=== PATIENT | male | born 1940 ===

== ENCOUNTER 2024-12-19 17:44 | Inpatient (IN) | payer MEDICARE, OTHER ==
--- NOTE | 2024-12-19 18:58 | ERPHSYRPT ---
- History of Present Illness Patient Subjective Stated Complaint: c/o fall at home Triage Nursing Assessment: patient brought to ED by EMS with c/o fall in the bathroom. patient fell on Thursday trying to get into his car and hit his head. patient was at home today in the bathroom and fell, patient tried to get up and fell again and hit his head twice, patient has a head contusion on left lateral forehead, no abnormalities noted on the right side of head, patient states he hit the right side of his head once today and on Thursday. not a diabetic, states he just got dizzy and lost his balance. denies LOC, skin w/n/d, skin tear noted on left hand. patient is hard of hearing, afebrile, FSBS was 56 per EMS Physician History: Near syncope, patient had 2 episodes of near syncope, he got up to use the bathroom fell hit his head got back up fell hit his head again, he had is not on any blood thinners, he had no loss of conscious, he denied any neck pain, Denies any chest pain Prior Episodes: multiple episodes today Timing/Duration: today Precipitating Factors: none Context: activity Loss of Consciousness: no loss of consciousness Charcter of event(s): almost passed out Allergies/Adverse Reactions: No Known Drug Allergies Allergy (Verified 12/19/24 18:03) Home Medications: Albuterol Sulfate [Proair Respiclick] 1 puff IH DAILY 12/19/24 [History] Fluticasone Propion/Salmeterol [Fluticasone-Salmeterol 100-50] 1 inh IH DAILY PRN PRN 12/19/24 [History] Hx Tetanus, Diphtheria Vaccination/Date Given: Yes Hx Influenza Vaccination/Date Given: Yes Hx Pneumococcal Vaccination/Date Given: Yes Travel Risk - International Travel Have you traveled outside of the country in past 3 weeks: No - Emerging Infectious Disease Are you exhibiting symptoms associated with any current EIDs: No - Past Medical History Pertinent Past Medical History: Yes Other Medical History: black lung, ablation, neck fracture, bilat. shoulder surgery, left hand crushed from mine, back surgery x 2 - Past Surgical History Past Surgical History: Yes Cardiac: Cardiac Catheterization Respiratory: No Pertinent History Gastrointestinal: No Pertinent History Genitourinary: No Pertinent History Musculoskeletal: Orthopedic Surgery Male Surgical History: No Pertinent History Other Surgical History: bilat. shoulder surgery, left hand repair, - Social History Smoking Status: Former smoker Exposure to second hand smoke: No Drug Use: none - Social Determinants of Health Will the patient participate in the screening: Declined to provide Physical Exam - Nursing Vital Signs Nursing Vital Signs: Initial Vital Signs Temperature 97.6 F 12/19/24 17:47 Respiratory Rate 18 12/19/24 17:47 Blood Pressure 168/89 12/19/24 17:47 O2 Sat by Pulse Oximetry 97 12/19/24 17:47 Pain Scale Pain Intensity 9 - [place] Coma Scale Best Eye Response ([place]): (4) open spontaneously Best Verbal Response (Joe): (5) oriented Best Motor Response (Joe): (6) obeys commands Joe Total: 15 - Physical Exam General Appearance: no apparent distress, alert Eye Exam: bilateral eye: PERRL, EOMI Ears, Nose, Throat Exam: normal ENT inspection, pharynx normal, moist mucous membranes Neck Exam: normal inspection, non-tender, supple, full range of motion Respiratory: normal breath sounds, lungs clear, No chest tenderness, No respiratory distress Cardiovascular: regular rate/rhythm, capillary refill <2 sec, No murmur, No pulse deficit Gastrointestinal: soft, No tenderness, No distention, No mass Back Exam: normal inspection, normal range of motion, No CVA tenderness, No vertebral tenderness Extremity Exam: normal inspection, normal range of motion, pelvis stable, No tenderness Mental Status: alert, oriented x 3, cooperative construction tech Exam: normal speech, PERRL, No facial droop Coordination/Gait: normal finger to nose Motor/Sensory: no motor deficit, no sensory deficit, no pronator drift Skin Exam: normal color, warm, dry, other (Very hard of hearing), No rash SpO2 Interpretation: normal SpO2: 95 Comments: Forehead hematoma, scalp hematoma Ordered Tests: Active Orders 24 hr Category Date Time Status IV Insertion STAT Care 12/19/24 18:14 Active HEAD WITHOUT CONTRAST [CT] Stat Exams 12/19/24 18:42 Taken CBC W DIFF Stat Lab 12/19/24 19:10 Completed CMP Stat Lab 12/19/24 19:10 Received POCT GLUCOSE Stat Lab 12/19/24 18:09 Completed Lab/Rad Data: Laboratory Result Diagrams 12/19/24 19:10 Laboratory Results 12/19/24 12/19/24 Range/Units 19:10 18:09 WBC 11.3 H (4.23-9.07) x10^3/uL RBC 5.19 (4.63-6.08) x10^6/uL Hgb 15.7 (13.7-17.5) g/dL Hct 49.0 (40.1-51.0) % MCV 94.4 H (79.0-92.2) fL MCH 30.3 (25.7-32.2) pg MCHC 32.0 L (32.3-36.5) g/dL RDW 13.8 (11.6-14.4) % Plt Count 190 (163-337) x10^3/uL MPV 10.6 (9.4-12.4) fL Gran % 71.0 H (34.0-67.9) % Immature Gran % (Auto) 0.6 H (0.001-0.429) % Nucleat RBC Rel Count 0.0 (0.00-0.2) % Eos # (Auto) 0.15 (0.04-0.54) x10^3/uL Immature Gran # (Auto) 0.07 H (0.001-0.031) x10^3u/L Absolute Lymphs (auto) 2.02 (1.32-3.57) x10^3/uL Absolute Monos (auto) 0.98 H (0.30-0.82) x10^3/uL Absolute Nucleated RBC 0.00 (0.00-0.012) x10^3u/L Lymphocytes % 17.9 L (21.8-53.1) % Monocytes % 8.7 (5.3-12.2) % Eosinophils % 1.3 (0.8-7.0) % Basophils % 0.5 (0.2-1.2) % Absolute Granulocytes 7.99 H (1.78-5.38) x10^3/uL Basophils # 0.06 (0.01-0.08) x10^3/uL POC Glucometer 87 (74 to 106) mg/dL - Progress Progress Note: 12/19/24 19:[address] Marion - Departure Clinical Impression: Near syncope Head injury Qualifiers: Encounter type: initial encounter Qualified Code(s): S09.90XA - Unspecified injury of head, initial encounter Condition: Fair Critical Care Time: No Referrals: RAISSA BRISENO MD [Primary Care Provider, [facility]] - Follow up/PCP as directed
[2024-12-19 19:14] LABS: BASOPHIL % 0.5 % (0.2-1.2); Basophil (Absolute #) 0.06 x10^3/uL (0.01-0.08); Eosinophil (Absolute #) 0.15 x10^3/uL (0.04-0.54); Hematocrit 49.0 % (40.1-51.0); Hemoglobin 15.7 g/dL (13.7-17.5); IMMATURE GRAN # 0.07 x10^3u/L (0.001-0.031); IMMATURE GRAN % 0.6 % (0.001-0.429); Lymphocyte (Absolute #) 2.02 x10^3/uL (1.32-3.57); Mean Corpuscular Hemoglobin 30.3 pg (25.7-32.2); Mean Corpuscular Hgb Concent. 32.0 g/dL (32.3-36.5); Monocyte (Absolute #) 0.98 x10^3/uL (0.30-0.82); NUCLEATED RBC # 0.00 x10^3u/L (0.00-0.012); NUCLEATED RBC % 0.0 % (0.00-0.2); Platelet Count 190 x10^3/uL (163-337); Red Blood Count 5.19 x10^6/uL (4.63-6.08); White Blood Count 11.3 x10^3/uL (4.23-9.07)
[2024-12-19 19:40] LABS: Calcium 9.2 mg/dL (8.4-10.2); Carbon Dioxide 31.0 mmol/L (22-30); Creatinine 1 0.79 mg/dL (0.66-1.25); EST GLOMERULAR FILTRATION RATE 88.7 ML/MIN; Glucose 96.0 mg/dL (74-106); Potassium 4.2 mmol/L (3.5-5.1); SGOT/AST 30.0 U/L (17-59); SGPT/ALT 21.0 U/L (0-50); Total Protein 7.7 g/dL (6.3-8.2)
[2024-12-19] MEDS ORDERED: DUONEB 0.5-3 MG/3 ml Neb IH ONE (20:00)
[2024-12-19] MEDS: DUONEB 0.5-3 MG/3 ml Neb IH ONE (20:15)
[2024-12-19] MEDS ORDERED: AMOXIL 500 MG ONE (20:44)
[2024-12-19] MEDS: AMOXIL 500 MG PO ONE (20:45)
[2024-12-19 22:49] LABS: Glucose, Urine Negative (Negative); Protein,Urine Dip Negative (Negative); RBC 0-2 /HPF (0-5); WBC 0-2 /HPF (0-5)
[2024-12-19] MEDS ORDERED: ROCEPHIN 1 GM / 100 ML NaCl 1 GM/100 ML IVPB IV ONE (22:58)
[2024-12-19] MEDS: ROCEPHIN 1 GM / 100 ML NaCl 1 GM/100 ML IVPB IV ONE (22:59)
[2024-12-19] MEDS ORDERED: Zofran 4 MG/2 ML VIAL IV PRN (23:28)
[2024-12-20] MEDS: TYLENOL 325 MG PO PRN (00:45)
[2024-12-20] MEDS ORDERED: FLUTICASONE PROPION IH PRN (01:32)
[2024-12-20] MEDS ORDERED: SALMETEROL IH PRN (01:32)
[2024-12-20] MEDS ORDERED: [UNRECOGNIZED DRUG - OTHER] IH PRN (01:32)
--- NOTE | 2024-12-20 01:43 | PCM.HP ---
History of Present Illness - Chief Complaint Chief Complaint: Frequent falls Date: 12/19/24 History of Present Illness: is a 84 year old male with no significant reported medical history but a recent history of multiple falls who presented to the ED with near syncope. The patient reported that had 2 episodes of near syncope, when he got up to use the bathroom and fell, and hit his head; he then got back up, fell and hit his head again. He denied LOC and denied taking any blood thinners. He also denied any neck pain, chest pain, weakness or numbness. In the ED, the patient was found to have evidence of a sinusitis with leukocytosis. He received IV fluids and IV antibiotics. The patient has significant hearing impairment and does not have his hearing aids at the time of my assessment. The patient was noted to have a hematoma on his forehead. - Review of Systems Constitutional: Fatigue, Weakness, No Fever, No Chills, No Lethargy, No Malaise, No Night Sweats, No Weight Loss Eyes: No Symptoms Ears, Nose, & Throat: No Symptoms Respiratory: No Symptoms Cardiac: Syncope, No Chest Pain, No Edema, No Palpitations, No Orthopnea, No PND, No Other Abdominal/Gastrointestinal: No Symptoms Genitourinary Symptoms: No Symptoms Musculoskeletal: Fall, Injury, No Arthralgias, No Back Pain, No Neck Pain, No Deformity, No Joint Redness, No Joint Pain, No Joint Swelling, No Myalgias, No Other Skin: No Symptoms Neurological: Dizziness, Headache, No Focal Weakness, No Gait Changes, No Irritability, No Lethargy, No Paralysis, No Parasthesia, No Seizure, No Sensory Changes, No Speech Changes, No Tics, No Tremors, No Vertigo Psychological: No Symptoms Endocrine: No Symptoms Hematologic/Lymphatic: No Symptoms Immunological/Allergic: No Symptoms Medications & Allergies Home Medications: Home Medication List Albuterol Sulfate [Proair Respiclick] 1 puff IH DAILY 12/19/24 [History Confirmed 12/19/24] Amoxicillin 500 mg Cap [Amoxil 500 mg] 500 mg PO TID #30 cap 12/19/24 [Rx] Fluticasone Propion/Salmeterol [Fluticasone-Salmeterol 100-50] 1 inh IH DAILY PRN PRN 12/19/24 [History Confirmed 12/19/24] Allergies/Adverse Reactions: Allergies Allergy/AdvReac Type Severity Reaction Status Date / Time No Known Drug Allergies Allergy Verified 12/19/24 18:03 - Past Medical History Past Medical History: Yes Neurological History: No Pertinent History ENT History: Cataracts Cardiac History: No Pertinent History Respiratory History: No Pertinent History Endocrine Medical History: No Pertinent History Musculoskelatal History: Arthritis GI Medical History: No Pertinent History History: No Pertinent History Pyscho-Social History: No Pertinent History Male Reproductive Disorders: No Pertinent History Comment: black lung, ablation, neck fracture, bilat. shoulder surgery, left hand crushed from mine, back surgery x 2 - Past Surgical History Past Surgical History: Yes Cardiac History: Cardiac Catheterization Respiratory Surgery: No Pertinent History GI Surgical History: No Pertinent History Genitourinary Surgical Hx: No Pertinent History Musculskeletal Surgical Hx: Orthopedic Surgery Male Surgical History: No Pertinent History Other Surgical History: bilat. shoulder surgery, left hand repair, Significant Family History: no pertinent family hx - Social History Smoking Status: Former smoker Exposure to second hand smoke: No Alcohol: Occasionally Drug Use: none - Social Determinants of Health Will the patient participate in the screening: Declined to provide - Physical Exam Vital Signs: Vital Signs - 24 hr Temp Pulse Resp BP BP Pulse Ox 12/20/24 00:17 96 12/19/24 23:47 98.3 F 79 15 142/83 96 12/19/24 23:46 98.3 F 79 15 142/83 96 12/19/24 23:00 89 17 168/100 97 12/19/24 22:30 143/96 90 L 12/19/24 22:01 95 H 17 144/99 96 12/19/24 21:30 96 H 20 146/88 95 12/19/24 21:00 92 H 18 161/79 94 L 12/19/24 20:31 159/136 96 12/19/24 20:16 87 18 99 12/19/24 20:00 97 H 20 148/97 98 12/19/24 19:39 95 12/19/24 19:30 171/97 96 12/19/24 19:25 168/109 96 12/19/24 19:10 96 12/19/24 19:08 95 12/19/24 18:30 162/101 12/19/24 18:00 86 18 182/111 95 12/19/24 17:49 168/89 96 12/19/24 17:47 97.6 F 18 168/89 97 General Appearance: no apparent distress, alert Neurologic Exam: alert, oriented x 3, cooperative, 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, normal mood/affect, nml cerebellar function, sensation nml, No motor deficits, No sensory deficit, No disoriented, No confusion Eye Exam: PERRL/EOMI, eyes nml inspection, No scleral icterus, No pale conjunctivae, No photophobia Ears, Nose, Throat Exam: normal ENT inspection Neck Exam: normal inspection, non-tender, supple, full range of motion, No meningismus Respiratory Exam: normal breath sounds, lungs clear, airway intact, No chest tenderness, No respiratory distress Cardiovascular Exam: regular rate/rhythm, normal heart sounds, No murmur, No friction rub, No gallop Gastrointestinal/Abdomen Exam: soft, normal bowel sounds, No tenderness, No distention, No mass Back Exam: normal range of motion Extremity Exam: normal inspection, normal range of motion, No pedal edema, No swelling Skin Exam: normal color, other (forehead hematoma noted), No rash, No petechiae, No jaundice, No cyanosis Results - Labs Lab/Micro Results: Lab Results-Last 24 Hours 12/19/24 12/19/24 12/19/24 Range/Units 18:09 19:10 19:10 WBC 11.3 H (4.23-9.07) x10^3/uL RBC 5.19 (4.63-6.08) x10^6/uL Hgb 15.7 (13.7-17.5) g/dL Hct 49.0 (40.1-51.0) % MCV 94.4 H (79.0-92.2) fL MCH 30.3 (25.7-32.2) pg MCHC 32.0 L (32.3-36.5) g/dL RDW 13.8 (11.6-14.4) % Plt Count 190 (163-337) x10^3/uL MPV 10.6 (9.4-12.4) fL Gran % 71.0 H (34.0-67.9) % Immature Gran % (Auto) 0.6 H (0.001-0.429) % Nucleat RBC Rel Count 0.0 (0.00-0.2) % Eos # (Auto) 0.15 (0.04-0.54) x10^3/uL Immature Gran # (Auto) 0.07 H (0.001-0.031) x10^3u/L Absolute Lymphs (auto) 2.02 (1.32-3.57) x10^3/uL Absolute Monos (auto) 0.98 H (0.30-0.82) x10^3/uL Absolute Nucleated RBC 0.00 (0.00-0.012) x10^3u/L Lymphocytes % 17.9 L (21.8-53.1) % Monocytes % 8.7 (5.3-12.2) % Eosinophils % 1.3 (0.8-7.0) % Basophils % 0.5 (0.2-1.2) % Absolute Granulocytes 7.99 H (1.78-5.38) x10^3/uL Basophils # 0.06 (0.01-0.08) x10^3/uL Sodium 137 (135-145) mmol/L Potassium 4.2 (3.5-5.1) mmol/L Chloride 98 (98-107) mmol/L Carbon Dioxide 31 H (22-30) mmol/L Anion Gap 11.6 (5-15) MEQ/L BUN 14 (9-20) mg/dL Creatinine 0.79 (0.66-1.25) mg/dL Estimated GFR 88.7 ML/MIN Glucose 96 (74-106) mg/dL POC Glucometer 87 (74 to 106) mg/dL Calcium 9.2 (8.4-10.2) mg/dL Total Bilirubin 1.30 (0.2-1.3) mg/dL AST 30 (17-59) U/L ALT 21 (0-50) U/L Alkaline Phosphatase 83 (38-126) U/L Serum Total Protein 7.7 (6.3-8.2) g/dL Albumin 4.5 (3.5-5.0) g/dL Urine Color (Yellow) Urine Appearance (Clear) Urine pH (4.6-8.0) Ur Specific [place] (1.005-1.030) Urine Protein (Negative) Urine Glucose (UA) (Negative) mg/dL Urine Ketones (Negative) Urine Blood (Negative) Urine Nitrite (Negative) Urine Bilirubin (Negative) Urine Urobilinogen (0.2) mg/dL Ur Leukocyte Esterase (Negative) U Hyaline Cast (Auto) (0-2) /LPF Urine Microscopic RBC (0-5) /HPF Urine Microscopic WBC (0-5) /HPF Ur Epithelial Cells (None Seen) /HPF Urine Bacteria (None Seen) /HPF Urine Culture Reflexed (NO) 12/19/24 Range/Units 22:36 WBC (4.23-9.07) x10^3/uL RBC (4.63-6.08) x10^6/uL Hgb (13.7-17.5) g/dL Hct (40.1-51.0) % MCV (79.0-92.2) fL MCH (25.7-32.2) pg MCHC (32.3-36.5) g/dL RDW (11.6-14.4) % Plt Count (163-337) x10^3/uL MPV (9.4-12.4) fL Gran % (34.0-67.9) % Immature Gran % (Auto) (0.001-0.429) % Nucleat RBC Rel Count (0.00-0.2) % Eos # (Auto) (0.04-0.54) x10^3/uL Immature Gran # (Auto) (0.001-0.031) x10^3u/L Absolute Lymphs (auto) (1.32-3.57) x10^3/uL Absolute Monos (auto) (0.30-0.82) x10^3/uL Absolute Nucleated RBC (0.00-0.012) x10^3u/L Lymphocytes % (21.8-53.1) % Monocytes % (5.3-12.2) % Eosinophils % (0.8-7.0) % Basophils % (0.2-1.2) % Absolute Granulocytes (1.78-5.38) x10^3/uL Basophils # (0.01-0.08) x10^3/uL Sodium (135-145) mmol/L Potassium (3.5-5.1) mmol/L Chloride (98-107) mmol/L Carbon Dioxide (22-30) mmol/L Anion Gap (5-15) MEQ/L BUN (9-20) mg/dL Creatinine (0.66-1.25) mg/dL Estimated GFR ML/MIN Glucose (74-106) mg/dL POC Glucometer (74 to 106) mg/dL Calcium (8.4-10.2) mg/dL Total Bilirubin (0.2-1.3) mg/dL AST (17-59) U/L ALT (0-50) U/L Alkaline Phosphatase (38-126) U/L Serum Total Protein (6.3-8.2) g/dL Albumin (3.5-5.0) g/dL Urine Color Yellow (Yellow) Urine Appearance Clear (Clear) Urine pH 7.0 (4.6-8.0) Ur Specific [place] 1.010 (1.005-1.030) Urine Protein Negative (Negative) Urine Glucose (UA) Negative (Negative) mg/dL Urine Ketones Negative (Negative) Urine Blood Negative (Negative) Urine Nitrite Negative (Negative) Urine Bilirubin Negative (Negative) Urine Urobilinogen 0.2 (0.2) mg/dL Ur Leukocyte Esterase Negative (Negative) U Hyaline Cast (Auto) NONE SEEN (0-2) /LPF Urine Microscopic RBC 0-2 (0-5) /HPF Urine Microscopic WBC 0-2 (0-5) /HPF Ur Epithelial Cells None Seen (None Seen) /HPF Urine Bacteria None Seen (None Seen) /HPF Urine Culture Reflexed NO (NO) - Radiology Impressions Radiology Exams & Impressions: Radiology Procedures Category Date Time Status HEAD WITHOUT CONTRAST [CT] Stat Exams 12/19/24 18:42 Taken - Other Procedures and Tests Respiratory Therapy 12/19/24 23:28 EKG REPEAT IN AM Assessment/Plan (1) Near syncope Current Visit: Yes Status: Acute Assessment & Plan: May have a component of dehydration. Received IV fluids. Check AM orthostatics. (2) Sinusitis Current Visit: Yes Status: Acute Assessment & Plan: Antibiotics. May be contributing to balance issues. Code(s): J32.9 - CHRONIC SINUSITIS, UNSPECIFIED (3) Leukocytosis Current Visit: Yes Status: Acute Assessment & Plan: Trend WBC count. Code(s): D72.829 - ELEVATED WHITE BLOOD CELL COUNT, UNSPECIFIED (4) Debility Current Visit: Yes Status: Acute Assessment & Plan: PT/OT eval/treat. CM eval. May need placement. Code(s): R53.81 - OTHER MALAISE (5) Head injury Current Visit: Yes Status: Acute Qualifiers: Encounter type: initial encounter Qualified Code(s): S09.90XA - Unspecified injury of head, initial encounter Assessment & Plan: Supportive care. Analgesia prn for discomfort. Code(s): S09.90XA - UNSPECIFIED INJURY OF HEAD, INITIAL ENCOUNTER Telemedicine Encounter - Telemedicine Encounter Telemedicine Encounter: "The entirety of this encounter was performed via Telemedicine" This visit was performed using real-time audio and video connection between my location and thepatients locationwith the assistance of a surrogateat the patients location. Written or verbal consent was obtained from the patient/guardian to perform this visit [email or web address]. Any patient questions regarding the telemedicine interaction were answered. Please note that this admission required 45 minutes to complete.
[2024-12-20] MEDS ORDERED: DUONEB 0.5-3 MG/3 ml Neb IH ONE (02:39)
[2024-12-20] MEDS: DUONEB 0.5-3 MG/3 ml Neb IH PRN (03:21)
[2024-12-20 04:37] LABS: BASOPHIL % 0.6 % (0.2-1.2); Basophil (Absolute #) 0.06 x10^3/uL (0.01-0.08); Eosinophil (Absolute #) 0.13 x10^3/uL (0.04-0.54); Hematocrit 46.1 % (40.1-51.0); Hemoglobin 14.9 g/dL (13.7-17.5); IMMATURE GRAN # 0.04 x10^3u/L (0.001-0.031); IMMATURE GRAN % 0.4 % (0.001-0.429); Lymphocyte (Absolute #) 1.72 x10^3/uL (1.32-3.57); Mean Corpuscular Hemoglobin 30.0 pg (25.7-32.2); Mean Corpuscular Hgb Concent. 32.3 g/dL (32.3-36.5); Monocyte (Absolute #) 0.92 x10^3/uL (0.30-0.82); NUCLEATED RBC # 0.00 x10^3u/L (0.00-0.012); NUCLEATED RBC % 0.0 % (0.00-0.2); Platelet Count 180 x10^3/uL (163-337); Red Blood Count 4.96 x10^6/uL (4.63-6.08); White Blood Count 10.9 x10^3/uL (4.23-9.07)
[2024-12-20 05:21] LABS: Calcium 8.6 mg/dL (8.4-10.2); Carbon Dioxide 28.0 mmol/L (22-30); Creatinine 1 0.72 mg/dL (0.66-1.25); EST GLOMERULAR FILTRATION RATE 91.2 ML/MIN; Glucose 134.0 mg/dL (74-106); Potassium 3.8 mmol/L (3.5-5.1)
--- NOTE | 2024-12-20 08:48 | XRAY ---
Indication: Head injury. Dizziness. Multiple contiguous axial images obtained through the head without contrast. Comparison: None Age-appropriate global atrophy and mild periventricular degenerative microischemia bilaterally. No acute intracranial hemorrhage, abnormal extra-axial fluid collection, or mass effect. 4th ventricle is midline without hydrocephalus. Bony calvarium intact. Moderate mucosal thickening left maxillary sinus without fluid leveling. Remaining paranasal sinuses and mastoid air cells are clear. Impression: Nonacute senile brain. Incidental left maxillary sinus disease.
[2024-12-20] MEDS: NON-FORMULARY ITEM (Albuterol Sulfate [Proair Respiclick] 90 MCG Aer.Pow.Ba) IH SCH (10:00)
[2024-12-20] MEDS ORDERED: ENOXAPARIN SODIUM SQ SCH (10:00)
[2024-12-20 10:14] LABS: INFLUENZA A NEGATIVE (NEGATIVE); INFLUENZA B NEGATIVE (NEGATIVE); RESPIRATORY SYNCTIAL VIRUS NEGATIVE (NEGATIVE); SARS-CoV-2 Xpert Express NEGATIVE (NEGATIVE)
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
--- NOTE | 2024-12-20 11:54 | XRAY ---
Indication: Wheezing. Comparison: None Portable chest demonstrates blunting right costophrenic angle favoring pleural effusion/pleural thickening. Small left midlung calcified granuloma. Remaining heart and lungs unremarkable. Bony thorax intact with osteopenia and mild degenerative changes.
--- NOTE | 2024-12-20 12:18 | XRAY ---
Indication: Left-sided weakness. Vision changes. Nonacute senile brain on recent CT head. Sagittal, coronal, and axial MRI brain performed without contrast using T1, T2, FLAIR, diffusion, and ADC sequences. Comparison: None Several images/sequences are slightly degraded by motion. Age-appropriate global atrophy and moderate periventricular degenerative microischemia signal bilaterally. Brainstem demonstrates lesser degenerative microischemia signal. Right occipital lobe demonstrates moderate-sized focus of restricted signal measuring at least 8 x 2.5 cm in greatest axial dimension favoring acute ischemia. No acute intracranial hemorrhage, abnormal extra-axial fluid collection, or mass effect. 4th ventricle is midline without hydrocephalus. 7/8 cranial nerve complex bilaterally symmetric. Normal flow void signal within the major intracerebral circulation. Normal appearing craniocervical junction and sella turcica. There is moderate mucosal thickening left maxillary sinus. Impression: 1. Motion artifact. 2. Acute ischemia right occipital lobe as detailed. No acute hemorrhage/mass effect. 3. Atrophy and degenerative microischemia within normal limits. 4. Incidental left maxillary sinus disease.
--- NOTE | 2024-12-20 12:44 | PCM.CONS ---
History of Present Illness - Neuro Consultation ED Arrival Date & Time: 12/19/24 17:44 Providers: Attending Provider: RIMA FLOREZ MD ED Provider: VICENTA CORONADO DO Consulting Provider: CORRIE GONZALEZ MD cc:: The requesting physician will be sent a copy of the consult. - History of Present Illness HPI: The patient is a 84M Review of Systems - Review of Systems Review of Systems (Narrative): Pertinent positive and negative findings as per HPI. All other systems negative. - Past Medical History Past Medical History: Yes Neurological History: No Pertinent History ENT History: Cataracts Cardiac History: No Pertinent History Respiratory History: No Pertinent History Endocrine Medical History: No Pertinent History Musculoskelatal History: Arthritis GI Medical History: No Pertinent History History: No Pertinent History Pyscho-Social History: No Pertinent History Male Reproductive Disorders: No Pertinent History Comment: black lung, ablation, neck fracture, bilat. shoulder surgery, left hand crushed from mine, back surgery x 2 - Past Surgical History Past Surgical History: Yes Cardiac History: Cardiac Catheterization Respiratory Surgery: No Pertinent History GI Surgical History: No Pertinent History Genitourinary Surgical Hx: No Pertinent History Musculskeletal Surgical Hx: Orthopedic Surgery Male Surgical History: No Pertinent History Other Surgical History: bilat. shoulder surgery, left hand repair, Significant Family History: no pertinent family hx - Social History Smoking Status: Former smoker Exposure to second hand smoke: No Alcohol: Occasionally Drug Use: none - Social Determinants of Health Will the patient participate in the screening: Declined to provide Comment: no concerns at this time Physical Exam - Vital Signs Vital Signs: Vital Signs - 24 hr 12/19/24 12/19/24 12/19/24 17:47 17:49 18:00 Temperature 97.6 F Pulse Rate 86 Respiratory 18 18 Rate Blood Pressure 168/89 182/111 Blood Pressure 168/89 [right] O2 Sat by Pulse 97 96 95 Oximetry 12/19/24 12/19/24 12/19/24 18:30 19:08 19:10 Temperature Pulse Rate Respiratory Rate Blood Pressure 162/101 Blood Pressure [right] O2 Sat by Pulse 95 96 Oximetry 12/19/24 12/19/24 12/19/24 19:25 19:30 19:39 Temperature Pulse Rate Respiratory Rate Blood Pressure 168/109 171/97 Blood Pressure [right] O2 Sat by Pulse 96 96 95 Oximetry 1012/19/24 12/19/24 20:00 20:16 20:31 Temperature Pulse Rate 97 H 87 Respiratory 20 18 Rate Blood Pressure 148/97 159/136 Blood Pressure [right] O2 Sat by Pulse 98 99 96 Oximetry 12/19/24 12/19/24 12/19/24 21:00 21:30 22:01 Temperature Pulse Rate 92 H 96 H 95 H Respiratory 18 20 17 Rate Blood Pressure 161/79 146/88 144/99 Blood Pressure [right] O2 Sat by Pulse 94 L 95 96 Oximetry 12/19/24 12/19/24 12/19/24 22:30 23:00 23:46 Temperature 98.3 F Pulse Rate 89 79 Respiratory 17 15 Rate Blood Pressure 143/96 168/100 Blood Pressure 142/83 [right] O2 Sat by Pulse 90 L 97 96 Oximetry 12/19/24 12/20/24 12/20/24 23:47 00:17 03:21 Temperature 98.3 F Pulse Rate 79 78 Respiratory 15 18 Rate Blood Pressure Blood Pressure 142/83 [right] O2 Sat by Pulse 96 96 97 Oximetry 12/20/24 12/20/24 12/20/24 03:57 07:00 07:45 Temperature 98.4 F 98.5 F Pulse Rate 90 90 99 H Respiratory 24 24 16 Rate Blood Pressure Blood Pressure 138/75 155/70 [right] O2 Sat by Pulse 96 94 L 93 L Oximetry 12/20/24 10:24 Temperature 98.5 F Pulse Rate 90 Respiratory 22 Rate Blood Pressure Blood Pressure 155/70 [right] O2 Sat by Pulse 94 L Oximetry - NIHSS Stroke Scale Date Completed: 12/20/24 Time Stroke Scale Completed: 10:35 Results - Labs Lab/Micro Results: Lab Results-Last 24 Hours 12/19/24 12/19/24 12/19/24 Range/Units 18:09 19:10 19:10 WBC 11.3 H (4.23-9.07) x10^3/uL RBC 5.19 (4.63-6.08) x10^6/uL Hgb 15.7 (13.7-17.5) g/dL Hct 49.0 (40.1-51.0) % MCV 94.4 H (79.0-92.2) fL MCH 30.3 (25.7-32.2) pg MCHC 32.0 L (32.3-36.5) g/dL RDW 13.8 (11.6-14.4) % Plt Count 190 (163-337) x10^3/uL MPV 10.6 (9.4-12.4) fL Gran % 71.0 H (34.0-67.9) % Immature Gran % (Auto) 0.6 H (0.001-0.429) % Nucleat RBC Rel Count 0.0 (0.00-0.2) % Eos # (Auto) 0.15 (0.04-0.54) x10^3/uL Immature Gran # (Auto) 0.07 H (0.001-0.031) x10^3u/L Absolute Lymphs (auto) 2.02 (1.32-3.57) x10^3/uL Absolute Monos (auto) 0.98 H (0.30-0.82) x10^3/uL Absolute Nucleated RBC 0.00 (0.00-0.012) x10^3u/L Lymphocytes % 17.9 L (21.8-53.1) % Monocytes % 8.7 (5.3-12.2) % Eosinophils % 1.3 (0.8-7.0) % Basophils % 0.5 (0.2-1.2) % Absolute Granulocytes 7.99 H (1.78-5.38) x10^3/uL Basophils # 0.06 (0.01-0.08) x10^3/uL Sodium 137 (135-145) mmol/L Potassium 4.2 (3.5-5.1) mmol/L Chloride 98 (98-107) mmol/L Carbon Dioxide 31 H (22-30) mmol/L Anion Gap 11.6 (5-15) MEQ/L BUN 14 (9-20) mg/dL Creatinine 0.79 (0.66-1.25) mg/dL Estimated GFR 88.7 ML/MIN Glucose 96 (74-106) mg/dL POC Glucometer 87 (74 to 106) mg/dL Calcium 9.2 (8.4-10.2) mg/dL Total Bilirubin 1.30 (0.2-1.3) mg/dL AST 30 (17-59) U/L ALT 21 (0-50) U/L Alkaline Phosphatase 83 (38-126) U/L Serum Total Protein 7.7 (6.3-8.2) g/dL Albumin 4.5 (3.5-5.0) g/dL Urine Color (Yellow) Urine Appearance (Clear) Urine pH (4.6-8.0) Ur Specific [place] (1.005-1.030) Urine Protein (Negative) Urine Glucose (UA) (Negative) mg/dL Urine Ketones (Negative) Urine Blood (Negative) Urine Nitrite (Negative) Urine Bilirubin (Negative) Urine Urobilinogen (0.2) mg/dL Ur Leukocyte Esterase (Negative) U Hyaline Cast (Auto) (0-2) /LPF Urine Microscopic RBC (0-5) /HPF Urine Microscopic WBC (0-5) /HPF Ur Epithelial Cells (None Seen) /HPF Urine Bacteria (None Seen) /HPF Urine Culture Reflexed (NO) Influenza Type A Ag (NEGATIVE) Influenza Type B Ag (NEGATIVE) RSV (PCR) (NEGATIVE) SARS-CoV-2 (PCR) (NEGATIVE) 12/19/24 12/20/24 12/20/24 Range/Units 22:36 04:10 04:10 WBC 10.9 H (4.23-9.07) x10^3/uL RBC 4.96 (4.63-6.08) x10^6/uL Hgb 14.9 (13.7-17.5) g/dL Hct 46.1 (40.1-51.0) % MCV 92.9 H (79.0-92.2) fL MCH 30.0 (25.7-32.2) pg MCHC 32.3 (32.3-36.5) g/dL RDW 13.9 (11.6-14.4) % Plt Count 180 (163-337) x10^3/uL MPV 10.8 (9.4-12.4) fL Gran % 73.6 H (34.0-67.9) % Immature Gran % (Auto) 0.4 (0.001-0.429) % Nucleat RBC Rel Count 0.0 (0.00-0.2) % Eos # (Auto) 0.13 (0.04-0.54) x10^3/uL Immature Gran # (Auto) 0.04 H (0.001-0.031) x10^3u/L Absolute Lymphs (auto) 1.72 (1.32-3.57) x10^3/uL Absolute Monos (auto) 0.92 H (0.30-0.82) x10^3/uL Absolute Nucleated RBC 0.00 (0.00-0.012) x10^3u/L Lymphocytes % 15.8 L (21.8-53.1) % Monocytes % 8.4 (5.3-12.2) % Eosinophils % 1.2 (0.8-7.0) % Basophils % 0.6 (0.2-1.2) % Absolute Granulocytes 8.02 H (1.78-5.38) x10^3/uL Basophils # 0.06 (0.01-0.08) x10^3/uL Sodium 134 L (135-145) mmol/L Potassium 3.8 (3.5-5.1) mmol/L Chloride 100 (98-107) mmol/L Carbon Dioxide 28 (22-30) mmol/L Anion Gap 9.8 (5-15) MEQ/L BUN 12 (9-20) mg/dL Creatinine 0.72 (0.66-1.25) mg/dL Estimated GFR 91.2 ML/MIN Glucose 134 H (74-106) mg/dL POC Glucometer (74 to 106) mg/dL Calcium 8.6 (8.4-10.2) mg/dL Total Bilirubin (0.2-1.3) mg/dL AST (17-59) U/L ALT (0-50) U/L Alkaline Phosphatase (38-126) U/L Serum Total Protein (6.3-8.2) g/dL Albumin (3.5-5.0) g/dL Urine Color Yellow (Yellow) Urine Appearance Clear (Clear) Urine pH 7.0 (4.6-8.0) Ur Specific [place] 1.010 (1.005-1.030) Urine Protein Negative (Negative) Urine Glucose (UA) Negative (Negative) mg/dL Urine Ketones Negative (Negative) Urine Blood Negative (Negative) Urine Nitrite Negative (Negative) Urine Bilirubin Negative (Negative) Urine Urobilinogen 0.2 (0.2) mg/dL Ur Leukocyte Esterase Negative (Negative) U Hyaline Cast (Auto) NONE SEEN (0-2) /LPF Urine Microscopic RBC 0-2 (0-5) /HPF Urine Microscopic WBC 0-2 (0-5) /HPF Ur Epithelial Cells None Seen (None Seen) /HPF Urine Bacteria None Seen (None Seen) /HPF Urine Culture Reflexed NO (NO) Influenza Type A Ag (NEGATIVE) Influenza Type B Ag (NEGATIVE) RSV (PCR) (NEGATIVE) SARS-CoV-2 (PCR) (NEGATIVE) 12/20/24 Range/Units 08:30 WBC (4.23-9.07) x10^3/uL RBC (4.63-6.08) x10^6/uL Hgb (13.7-17.5) g/dL Hct (40.1-51.0) % MCV (79.0-92.2) fL MCH (25.7-32.2) pg MCHC (32.3-36.5) g/dL RDW (11.6-14.4) % Plt Count (163-337) x10^3/uL MPV (9.4-12.4) fL Gran % (34.0-67.9) % Immature Gran % (Auto) (0.001-0.429) % Nucleat RBC Rel Count (0.00-0.2) % Eos # (Auto) (0.04-0.54) x10^3/uL Immature Gran # (Auto) (0.001-0.031) x10^3u/L Absolute Lymphs (auto) (1.32-3.57) x10^3/uL Absolute Monos (auto) (0.30-0.82) x10^3/uL Absolute Nucleated RBC (0.00-0.012) x10^3u/L Lymphocytes % (21.8-53.1) % Monocytes % (5.3-12.2) % Eosinophils % (0.8-7.0) % Basophils % (0.2-1.2) % Absolute Granulocytes (1.78-5.38) x10^3/uL Basophils # (0.01-0.08) x10^3/uL Sodium (135-145) mmol/L Potassium (3.5-5.1) mmol/L Chloride (98-107) mmol/L Carbon Dioxide (22-30) mmol/L Anion Gap (5-15) MEQ/L BUN (9-20) mg/dL Creatinine (0.66-1.25) mg/dL Estimated GFR ML/MIN Glucose (74-106) mg/dL POC Glucometer (74 to 106) mg/dL Calcium (8.4-10.2) mg/dL Total Bilirubin (0.2-1.3) mg/dL AST (17-59) U/L ALT (0-50) U/L Alkaline Phosphatase (38-126) U/L Serum Total Protein (6.3-8.2) g/dL Albumin (3.5-5.0) g/dL Urine Color (Yellow) Urine Appearance (Clear) Urine pH (4.6-8.0) Ur Specific [place] (1.005-1.030) Urine Protein (Negative) Urine Glucose (UA) (Negative) mg/dL Urine Ketones (Negative) Urine Blood (Negative) Urine Nitrite (Negative) Urine Bilirubin (Negative) Urine Urobilinogen (0.2) mg/dL Ur Leukocyte Esterase (Negative) U Hyaline Cast (Auto) (0-2) /LPF Urine Microscopic RBC (0-5) /HPF Urine Microscopic WBC (0-5) /HPF Ur Epithelial Cells (None Seen) /HPF Urine Bacteria (None Seen) /HPF Urine Culture Reflexed (NO) Influenza Type A Ag NEGATIVE (NEGATIVE) Influenza Type B Ag NEGATIVE (NEGATIVE) RSV (PCR) NEGATIVE (NEGATIVE) SARS-CoV-2 (PCR) NEGATIVE (NEGATIVE) - Other Procedures & Test Other Procedures & Test: Respiratory Therapy 12/20/24 03:15 Respiratory Therapy Assessment DAILY 12/20/24 03:16 Oxygen Nasal Cannula 2 lpm - Radiology Orders Radiology Orders: Radiology Procedures Category Date Time Status CHEST 1 VIEW (PORTABLE) Routine Exams 12/20/24 10:53 Completed HEAD WITHOUT CONTRAST [CT] Stat Exams 12/19/24 18:42 Completed MRI BRAIN W/O CONTRAST [MRI] Routine Exams 12/20/24 09:49 Completed Impressions & Recommendations - ED Arrival Time ED Arrival Date & Time: ED Arrival Date and Time 12/19/24 17:44 Last known well time: - NIHSS IV Thrombolysis Standard of Care: IV thrombolysis as a standard of care in acute stroke discussed with VICENTA CORONADO DO. Risk, benefits, and options of IV thrombolytic therapy for acute ischemic stroke were discussed with the patient/family ANA YODER. We discussed that use of IV tenecteplase is in line with national stroke guidelines. We discussed that risks of IV thrombolytic use include intracranial hemorrhage, other fatal bleeding risks, and angioedema. Alternatives of treatment, including not proceeding with thrombolytic therapy were discussed. - Recommendations Recommendations: -Neuro checks, NIHSS, vital signs monitoring as per post tenecteplase protocol -Repeat non contrast head CT or noncontrast MRI brain 24 hours after IV thrombolyltic administration. -Obtain STAT non contrast head CT if there are new neurological deficits, worsening of current deficits, or with complaint of severe headache. Notify Neurology [facility] of changes in neurological exam. -Nicardipine gtt as needed to maintain BP< 180/105 x 24hr post tenecteplase administration. -Monitor for angioedema -SCD's for DVT prophylaxis. Work up: -Basic labs (CBC, BMP, TSH+T4) if not done already. -INR,PTT if not done already -Fasting Lipid Panel and Hgb A1c -Transthroacic echocardiogram [with bubble study] -EKG + Telemetry- monitor for A-FIB Secondary Stroke Prevention -Hold off on antiplatelet therapy x 24 hr post IV thrombolytic therapy Decision to initiate antiplatelet therapy, or anticoagulation if needed, will be based on repeat imaging at 24 hour post thrombolytic administration. -If not medical contraindication, start high intensity statin. Eg. Atrovastatin 80 mg daily Risk Factor Management -HTN control: BP <180/105 for first 24 hr post tenecteplase -If diabetic, optimize glucose control: snf goal HgA1c <7 -HLD control: Long-term goal LDL <70. High intensity statin recommended. Moderate intensity statin in patients > 75 years. -Smoking Alcohol Use Drug use cessation counseling Stroke Rehabilitation: -Physical therapy, occupational therapy, speech therapy consults -Social work and case management consults for help with discharge needs. Impression and recommendation were discussed with Dr. VICENTA CORONADO DO Thank you for allowing us to participate in this patient's care. Please call [facility] with questions, concerns, or change in patient's neurological status. This consult was performed via secure telemedicine audio/visual platform with [ ] RN assisting at bedside. Patient identity verified and consent obtained. TIQ recieved at [ ] Neuro Cart Time: Delays in Patient Encounter: Assessment & Plan - Encounter Encounter: "The entirety of this encounter was performed via Telemedicine using audio and visual "
--- NOTE | 2024-12-20 13:09 | PCM.CONS ---
History of Present Illness - Neuro Consultation ED Arrival Date & Time: 12/19/24 17:44 Providers: Attending Provider: RIMA FLOREZ MD ED Provider: VICENTA CORONADO DO Consulting Provider: MICHAEL GONZALEZ MD cc:: The requesting physician will be sent a copy of the consult. - Chief Complaint Patient Subjective Stated Complaint: falls, left visual field deficit, and left sided weakness. STAT Neuro assessment/stroke code: Patient admitted last night for frequent falls and weakness. Stroke code called for progressive left sided weakness. He is also unable to see an examiner on the left. Left leg weakness noticed around 1730 last night. Patient was found down at that time. He reports that he was down "for a while". Patient has been experiencing fluctuation dizziness or the last 2 weeks. Patient reports room spinning vertigo. Patient reports a sharp pain to the gnosticist when he coughs. Standing up triggers the dizziness. Not dizzy laying in bed. History obtained with family in the room. This is the extent of the patients complaints at this time. LKW: two nights ago NIHSS: 5 Is patient an IV thrombolytics candidate: no, outside of the window Is patient a thrombectomy candidate: pending CTA, but outside of 24 hour window - History of Present Illness HPI: Patient is an 84 year old male with a history of NV who presents with falls, left visual field deficit, and left sided weakness. Patient admitted last night for frequent falls and weakness. Stroke code called for progressive left sided weakness. He is also unable to see an examiner on the left. Left leg weakness noticed around 1730 last night. Patient was found down at that time. He reports that he was down "for a while". Patient has been experiencing fluctuation dizziness or the last 2 weeks. Patient reports room spinning vertigo. Patient reports a sharp pain to the gnosticist when he coughs. Standing up triggers the dizziness. Not dizzy laying in bed. History obtained with family in the room. This is the extent of the patients complaints at this time. LKW: two nights ago NIHSS: 5 Is patient an IV thrombolytics candidate: no, outside of the window Is patient a thrombectomy candidate: pending CTA, but outside of 24 hour window Review of Systems - Review of Systems Review of Systems (Narrative): Pertinent positive and negative findings as per HPI. All other systems negative. Constitutional: Denies fevers, chills, weight loss ENT: Denies tinnitus Ophthalmology: Denies diplopia, blurred vision, endorses vision loss Respiratory: Denies SOB, cough Cardiovascular: Denies chest pains, palpitations GI: Denies nausea, vomiting : Denies hematuria Hematology: Denies excessive bleeding Musculoskeletal: Denies back pain, neck pain, joint pain Neurology: Denies headache, altered mentation Mental Health: Denies anxiety Dermatology: Denies rash - Past Medical History Past Medical History: Yes Neurological History: No Pertinent History ENT History: Cataracts Cardiac History: No Pertinent History, Myocardial Infarction (NV) Respiratory History: No Pertinent History Endocrine Medical History: No Pertinent History Musculoskelatal History: Arthritis GI Medical History: No Pertinent History History: No Pertinent History Pyscho-Social History: No Pertinent History Male Reproductive Disorders: No Pertinent History Comment: black lung, ablation, neck fracture, bilat. shoulder surgery, left hand crushed from mine, back surgery x 2 - Past Surgical History Past Surgical History: Yes Cardiac History: Cardiac Catheterization Respiratory Surgery: No Pertinent History GI Surgical History: No Pertinent History Genitourinary Surgical Hx: No Pertinent History Musculskeletal Surgical Hx: Orthopedic Surgery Male Surgical History: No Pertinent History Other Surgical History: bilat. shoulder surgery, left hand repair, Significant Family History: no pertinent family hx - Social History Smoking Status: Former smoker Exposure to second hand smoke: No Alcohol: Occasionally Drug Use: none - Social Determinants of Health Will the patient participate in the screening: Declined to provide Comment: no concerns at this time Physical Exam - Vital Signs Vital Signs: Vital Signs - 24 hr 12/19/24 12/19/24 12/19/24 17:47 17:49 18:00 Temperature 97.6 F Pulse Rate 86 Respiratory 18 18 Rate Blood Pressure 168/89 182/111 Blood Pressure 168/89 [right] O2 Sat by Pulse 97 96 95 Oximetry 12/19/24 12/19/24 12/19/24 18:30 19:08 19:10 Temperature Pulse Rate Respiratory Rate Blood Pressure 162/101 Blood Pressure [right] O2 Sat by Pulse 95 96 Oximetry 12/19/24 12/19/24 12/19/24 19:25 19:30 19:39 Temperature Pulse Rate Respiratory Rate Blood Pressure 168/109 171/97 Blood Pressure [right] O2 Sat by Pulse 96 96 95 Oximetry 12/19/24 12/19/24 12/19/24 20:00 20:16 20:31 Temperature Pulse Rate 97 H 87 Respiratory 20 18 Rate Blood Pressure 148/97 159/136 Blood Pressure [right] O2 Sat by Pulse 98 99 96 Oximetry 12/19/24 12/19/24 12/19/24 21:00 21:30 22:01 Temperature Pulse Rate 92 H 96 H 95 H Respiratory 18 20 17 Rate Blood Pressure 161/79 146/88 144/99 Blood Pressure [right] O2 Sat by Pulse 94 L 95 96 Oximetry 12/19/24 12/19/24 12/19/24 22:30 23:00 23:46 Temperature 98.3 F Pulse Rate 89 79 Respiratory 17 15 Rate Blood Pressure 143/96 168/100 Blood Pressure 142/83 [right] O2 Sat by Pulse 90 L 97 96 Oximetry 12/19/24 12/20/24 12/20/24 23:47 00:17 03:21 Temperature 98.3 F Pulse Rate 79 78 Respiratory 15 18 Rate Blood Pressure Blood Pressure 142/83 [right] O2 Sat by Pulse 96 96 97 Oximetry 12/20/24 12/20/24 12/20/24 03:57 07:00 07:45 Temperature 98.4 F 98.5 F Pulse Rate 90 90 99 H Respiratory 24 24 16 Rate Blood Pressure Blood Pressure 138/75 155/70 [right] O2 Sat by Pulse 96 94 L 93 L Oximetry 12/20/24 10:24 Temperature 98.5 F Pulse Rate 90 Respiratory 22 Rate Blood Pressure Blood Pressure 155/70 [right] O2 Sat by Pulse 94 L Oximetry - Physical Exam Cranial nerves: sensation intact, face is symmetric, trapezii intact strong, tongue midline, + Blink (left loss of visual field) Motor: antigravity in all 4 ext, weak motor strength LUE, weak motor strength LLE Sens:: intact to touch in all 4 (numbness in left hand) Movement:: no tremors noted, SHREE/FTN intact. No ataxia MSR:: unable to assess through telemedicine, no clonus noted. - NIHSS Stroke Scale Date Completed: 12/20/24 Time Stroke Scale Completed: 10:35 Results - Labs Lab/Micro Results: Lab Results-Last 24 Hours 12/19/24 12/19/24 12/19/24 Range/Units 18:09 19:10 19:10 WBC 11.3 H (4.23-9.07) x10^3/uL RBC 5.19 (4.63-6.08) x10^6/uL Hgb 15.7 (13.7-17.5) g/dL Hct 49.0 (40.1-51.0) % MCV 94.4 H (79.0-92.2) fL MCH 30.3 (25.7-32.2) pg MCHC 32.0 L (32.3-36.5) g/dL RDW 13.8 (11.6-14.4) % Plt Count 190 (163-337) x10^3/uL MPV 10.6 (9.4-12.4) fL Gran % 71.0 H (34.0-67.9) % Immature Gran % (Auto) 0.6 H (0.001-0.429) % Nucleat RBC Rel Count 0.0 (0.00-0.2) % Eos # (Auto) 0.15 (0.04-0.54) x10^3/uL Immature Gran # (Auto) 0.07 H (0.001-0.031) x10^3u/L Absolute Lymphs (auto) 2.02 (1.32-3.57) x10^3/uL Absolute Monos (auto) 0.98 H (0.30-0.82) x10^3/uL Absolute Nucleated RBC 0.00 (0.00-0.012) x10^3u/L Lymphocytes % 17.9 L (21.8-53.1) % Monocytes % 8.7 (5.3-12.2) % Eosinophils % 1.3 (0.8-7.0) % Basophils % 0.5 (0.2-1.2) % Absolute Granulocytes 7.99 H (1.78-5.38) x10^3/uL Basophils # 0.06 (0.01-0.08) x10^3/uL Sodium 137 (135-145) mmol/L Potassium 4.2 (3.5-5.1) mmol/L Chloride 98 (98-107) mmol/L Carbon Dioxide 31 H (22-30) mmol/L Anion Gap 11.6 (5-15) MEQ/L BUN 14 (9-20) mg/dL Creatinine 0.79 (0.66-1.25) mg/dL Estimated GFR 88.7 ML/MIN Glucose 96 (74-106) mg/dL POC Glucometer 87 (74 to 106) mg/dL Calcium 9.2 (8.4-10.2) mg/dL Total Bilirubin 1.30 (0.2-1.3) mg/dL AST 30 (17-59) U/L ALT 21 (0-50) U/L Alkaline Phosphatase 83 (38-126) U/L Serum Total Protein 7.7 (6.3-8.2) g/dL Albumin 4.5 (3.5-5.0) g/dL Urine Color (Yellow) Urine Appearance (Clear) Urine pH (4.6-8.0) Ur Specific [place] (1.005-1.030) Urine Protein (Negative) Urine Glucose (UA) (Negative) mg/dL Urine Ketones (Negative) Urine Blood (Negative) Urine Nitrite (Negative) Urine Bilirubin (Negative) Urine Urobilinogen (0.2) mg/dL Ur Leukocyte Esterase (Negative) U Hyaline Cast (Auto) (0-2) /LPF Urine Microscopic RBC (0-5) /HPF Urine Microscopic WBC (0-5) /HPF Ur Epithelial Cells (None Seen) /HPF Urine Bacteria (None Seen) /HPF Urine Culture Reflexed (NO) Influenza Type A Ag (NEGATIVE) Influenza Type B Ag (NEGATIVE) RSV (PCR) (NEGATIVE) SARS-CoV-2 (PCR) (NEGATIVE) 12/19/24 12/20/24 12/20/24 Range/Units 22:36 04:10 04:10 WBC 10.9 H (4.23-9.07) x10^3/uL RBC 4.96 (4.63-6.08) x10^6/uL Hgb 14.9 (13.7-17.5) g/dL Hct 46.1 (40.1-51.0) % MCV 92.9 H (79.0-92.2) fL MCH 30.0 (25.7-32.2) pg MCHC 32.3 (32.3-36.5) g/dL RDW 13.9 (11.6-14.4) % Plt Count 180 (163-337) x10^3/uL MPV 10.8 (9.4-12.4) fL Gran % 73.6 H (34.0-67.9) % Immature Gran % (Auto) 0.4 (0.001-0.429) % Nucleat RBC Rel Count 0.0 (0.00-0.2) % Eos # (Auto) 0.13 (0.04-0.54) x10^3/uL Immature Gran # (Auto) 0.04 H (0.001-0.031) x10^3u/L Absolute Lymphs (auto) 1.72 (1.32-3.57) x10^3/uL Absolute Monos (auto) 0.92 H (0.30-0.82) x10^3/uL Absolute Nucleated RBC 0.00 (0.00-0.012) x10^3u/L Lymphocytes % 15.8 L (21.8-53.1) % Monocytes % 8.4 (5.3-12.2) % Eosinophils % 1.2 (0.8-7.0) % Basophils % 0.6 (0.2-1.2) % Absolute Granulocytes 8.02 H (1.78-5.38) x10^3/uL Basophils # 0.06 (0.01-0.08) x10^3/uL Sodium 134 L (135-145) mmol/L Potassium 3.8 (3.5-5.1) mmol/L Chloride 100 (98-107) mmol/L Carbon Dioxide 28 (22-30) mmol/L Anion Gap 9.8 (5-15) MEQ/L BUN 12 (9-20) mg/dL Creatinine 0.72 (0.66-1.25) mg/dL Estimated GFR 91.2 ML/MIN Glucose 134 H (74-106) mg/dL POC Glucometer (74 to 106) mg/dL Calcium 8.6 (8.4-10.2) mg/dL Total Bilirubin (0.2-1.3) mg/dL AST (17-59) U/L ALT (0-50) U/L Alkaline Phosphatase (38-126) U/L Serum Total Protein (6.3-8.2) g/dL Albumin (3.5-5.0) g/dL Urine Color Yellow (Yellow) Urine Appearance Clear (Clear) Urine pH 7.0 (4.6-8.0) Ur Specific [place] 1.010 (1.005-1.030) Urine Protein Negative (Negative) Urine Glucose (UA) Negative (Negative) mg/dL Urine Ketones Negative (Negative) Urine Blood Negative (Negative) Urine Nitrite Negative (Negative) Urine Bilirubin Negative (Negative) Urine Urobilinogen 0.2 (0.2) mg/dL Ur Leukocyte Esterase Negative (Negative) U Hyaline Cast (Auto) NONE SEEN (0-2) /LPF Urine Microscopic RBC 0-2 (0-5) /HPF Urine Microscopic WBC 0-2 (0-5) /HPF Ur Epithelial Cells None Seen (None Seen) /HPF Urine Bacteria None Seen (None Seen) /HPF Urine Culture Reflexed NO (NO) Influenza Type A Ag (NEGATIVE) Influenza Type B Ag (NEGATIVE) RSV (PCR) (NEGATIVE) SARS-CoV-2 (PCR) (NEGATIVE) 12/20/24 Range/Units 08:30 WBC (4.23-9.07) x10^3/uL RBC (4.63-6.08) x10^6/uL Hgb (13.7-17.5) g/dL Hct (40.1-51.0) % MCV (79.0-92.2) fL MCH (25.7-32.2) pg MCHC (32.3-36.5) g/dL RDW (11.6-14.4) % Plt Count (163-337) x10^3/uL MPV (9.4-12.4) fL Gran % (34.0-67.9) % Immature Gran % (Auto) (0.001-0.429) % Nucleat RBC Rel Count (0.00-0.2) % Eos # (Auto) (0.04-0.54) x10^3/uL Immature Gran # (Auto) (0.001-0.031) x10^3u/L Absolute Lymphs (auto) (1.32-3.57) x10^3/uL Absolute Monos (auto) (0.30-0.82) x10^3/uL Absolute Nucleated RBC (0.00-0.012) x10^3u/L Lymphocytes % (21.8-53.1) % Monocytes % (5.3-12.2) % Eosinophils % (0.8-7.0) % Basophils % (0.2-1.2) % Absolute Granulocytes (1.78-5.38) x10^3/uL Basophils # (0.01-0.08) x10^3/uL Sodium (135-145) mmol/L Potassium (3.5-5.1) mmol/L Chloride (98-107) mmol/L Carbon Dioxide (22-30) mmol/L Anion Gap (5-15) MEQ/L BUN (9-20) mg/dL Creatinine (0.66-1.25) mg/dL Estimated GFR ML/MIN Glucose (74-106) mg/dL POC Glucometer (74 to 106) mg/dL Calcium (8.4-10.2) mg/dL Total Bilirubin (0.2-1.3) mg/dL AST (17-59) U/L ALT (0-50) U/L Alkaline Phosphatase (38-126) U/L Serum Total Protein (6.3-8.2) g/dL Albumin (3.5-5.0) g/dL Urine Color (Yellow) Urine Appearance (Clear) Urine pH (4.6-8.0) Ur Specific [place] (1.005-1.030) Urine Protein (Negative) Urine Glucose (UA) (Negative) mg/dL Urine Ketones (Negative) Urine Blood (Negative) Urine Nitrite (Negative) Urine Bilirubin (Negative) Urine Urobilinogen (0.2) mg/dL Ur Leukocyte Esterase (Negative) U Hyaline Cast (Auto) (0-2) /LPF Urine Microscopic RBC (0-5) /HPF Urine Microscopic WBC (0-5) /HPF Ur Epithelial Cells (None Seen) /HPF Urine Bacteria (None Seen) /HPF Urine Culture Reflexed (NO) Influenza Type A Ag NEGATIVE (NEGATIVE) Influenza Type B Ag NEGATIVE (NEGATIVE) RSV (PCR) NEGATIVE (NEGATIVE) SARS-CoV-2 (PCR) NEGATIVE (NEGATIVE) - Other Procedures & Test Other Procedures & Test: Respiratory Therapy 12/20/24 03:15 Respiratory Therapy Assessment DAILY 12/20/24 03:16 Oxygen Nasal Cannula 2 lpm - Radiology Orders Radiology Orders: Radiology Procedures Category Date Time Status CHEST 1 VIEW (PORTABLE) Routine Exams 12/20/24 10:53 Completed HEAD WITHOUT CONTRAST [CT] Stat Exams 12/19/24 18:42 Completed MRI BRAIN W/O CONTRAST [MRI] Routine Exams 12/20/24 09:49 Completed MRI brain: acute ischemia in the right occipital lobe WBC: 11.3 Impressions & Recommendations - ED Arrival Time ED Arrival Date & Time: ED Arrival Date and Time 12/19/24 17:44 Last known well time: - NIHSS NIHSS: Mental status (0-3): 0 Month/age (0-2): 0 Commands (0-2): 0 Best Gaze (0-2): 0 Visual Burnett (0-3): 2 (no left visual field) Facial weakness (0-3): 0 LUE (0-4): 1 RUE (0-4): 0 LLE (0-4): 1 RLE (0-4): 0 Ataxia (0-2): 0 Sensation (0-2): 1 numbness in the left hand Aphasia (0-3): 0 Dysarthria (0-2): 0 Extinction (0-2): 0 NIHSS Total: 5 Is patient an IV TPA candidate (if no specify reason): No If not, specify reason:: out of window Is patient a thrombectomy candidate:: No Candiate reason: CTA of head (but out of window) IV Thrombolysis Standard of Care: IV thrombolysis as a standard of care in acute stroke discussed with VICENTA CORONADO DO. Risk, benefits, and options of IV thrombolytic therapy for acute ischemic stroke were discussed with the patient/family ANA YODER. We discussed that use of IV tenecteplase is in line with national stroke guidelines. We discussed that risks of IV thrombolytic use include intracranial hemorrhage, other fatal bleeding risks, and angioedema. Alternatives of treatment, including not proceeding with thrombolytic therapy were discussed. - Recommendations Recommendations: -Neuro checks, NIHSS, vital signs monitoring as per post tenecteplase protocol -Repeat non contrast head CT or noncontrast MRI brain 24 hours after IV thrombolyltic administration. -Obtain STAT non contrast head CT if there are new neurological deficits, worsening of current deficits, or with complaint of severe headache. Notify Neurology ISAI of changes in neurological exam. -Nicardipine gtt as needed to maintain BP< 180/105 x 24hr post tenecteplase administration. -Monitor for angioedema -SCD's for DVT prophylaxis. Work up: -Basic labs (CBC, BMP, TSH+T4) if not done already. -INR,PTT if not done already -Fasting Lipid Panel and Hgb A1c -Transthroacic echocardiogram [with bubble study] -EKG + Telemetry- monitor for A-FIB Secondary Stroke Prevention -Hold off on antiplatelet therapy x 24 hr post IV thrombolytic therapy Decision to initiate antiplatelet therapy, or anticoagulation if needed, will be based on repeat imaging at 24 hour post thrombolytic administration. -If not medical contraindication, start high intensity statin. Eg. Atrovastatin 80 mg daily Risk Factor Management -HTN control: BP <180/105 for first 24 hr post tenecteplase -If diabetic, optimize glucose control: field operations supervisor goal HgA1c <7 -HLD control: Long-term goal LDL <70. High intensity statin recommended. Moderate intensity statin in patients > 75 years. -Smoking Alcohol Use Drug use cessation counseling Stroke Rehabilitation: -Physical therapy, occupational therapy, speech therapy consults -Social work and case management consults for help with discharge needs. Impression and recommendation were discussed with Dr. VICENTA CORONADO, DO Thank you for allowing us to participate in this patient's care. Please call [facility] with questions, concerns, or change in patient's neurological status. This consult was performed via secure telemedicine audio/visual platform with [ ] RN assisting at bedside. Patient identity verified and consent obtained. TIQ recieved at [ ] Neuro Cart Time: Delays in Patient Encounter: Assessment & Plan - Encounter Encounter: "The entirety of this encounter was performed via Telemedicine using audio and visual " Patient is an 84 year old male with a history of NV who presents with falls, left visual field deficit, and left sided weakness. 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 Progressive left sided weakness and left hand numbness is concerning for new infarct. Thrombolytics contraindicated due to outside of window and recent infarct. - General Recommendations - Telemetry - q4h neuro checks - Medications - ASA 81mg daily - POINT? Plavix 300mg loading dose x1, followed by 75mg daily for 21days after the acute stroke, followed by ASA only - High intensity statin - Please avoid benzodiazepines/sedatives if agitated to not obscure neurologic exam - Imaging: - Obtain MRI brain wo contrast - Obtain CTA head and neck - Obtain TTE w/ bubble - Blood Pressure Goal - Permissive HTN up to 220/120 for 24/48 hours followed by normotensive goals - prn labetalol or nicardipine gtt to maintain goal - Labs: - HgbA1c - Lipid panel - TSH with Reflex to T4 - PT/OT/RATING SPECIALIST - Discharge Planning - Patient will need follow up with neurology - Please provide ambulatory telemetry at discharge (30 days) Michael Gonzalez MD Acute care plan was discussed with Dr. Florez Thank you for allowing us to participate in this patients care. Please call [facility] with questions, concerns, or change in patients neurological status. This consult was performed via secure telemedicine 2 way audio/visual platform, patient consent obtained. Acute Stroke consult time: 1235 Neuro arrival on screen time: 123
[2024-12-20] MEDS: BABY ASPIRIN 81 MG CHEW PO ONE (13:16)
--- NOTE | 2024-12-20 14:43 | XRAY ---
Indication: Ischemic stroke. Conventional contrast-enhanced CTA head performed using 80 cc Isovue 370 contrast. 2D sagittal and coronal reformatted images obtained. Additional 3D reformatted images obtained using separate workstation. Comparison: None Distal internal carotid arteries are bilaterally symmetric with mild scattered calcifications in both parasellar segments. No critical stenosis, obstruction, or AV malformation. Normal carotid terminus with normal branching A1 and M1 segments bilaterally. More distal anterior cerebral and middle cerebral arteries are normal in CTA appearance bilaterally. Posterior circulation demonstrates absent opacification/perfusion distal right posterior cerebral artery, specifically cortical and terminal branches. Otherwise normal CTA appearance to remaining distal left/right vertebral, basilar, right posterior cerebral, and left/right superior cerebellar arteries. Venous sinuses/drainage unremarkable. Brain parenchyma is negative for abnormal intra or extra-axial enhancement. Impression: 1. Minimal arteriosclerotic parasellar internal carotid arteries without critical stenosis/obstruction. 2. Absent opacification/perfusion distal right posterior cerebral artery as detailed. Finding corresponds to same-day MRI proven right occipital lobe ischemia. 3. Remaining CTA head with contrast exam is negative.
--- NOTE | 2024-12-20 15:04 | XRAY ---
Indication: Ischemic stroke. Two-dimensional sonogram and color Doppler imaging carotid arteries of the neck performed. Comparison: None Examination right carotid circulation demonstrates mild eccentric calcification carotid bulb extending into origin internal carotid artery. Otherwise widely patent internal carotid and external carotid arteries. PSV CCA is 97 cm/sec. PSV ICA is 74 cm/sec. ICA/CCA ratio is 0.8. Normal antegrade vertebral artery flow. Examination left carotid circulation demonstrates minimal eccentric calcification carotid bulb and mild calcifications origin/proximal internal carotid/external carotid arteries. PSV CCA is 94 cm/sec. PSV ICA is 131 cm/sec. ICA/CCA ratio is 1.4. Normal antegrade vertebral artery flow. Impression: Minimal/mild scattered arteriosclerotic disease, [id number] as detailed. Velocity measurements and ratios are negative for hemodynamically significant flow-limiting stenosis.
[2024-12-20 15:36] LABS: Cholesterol 182.0 mg/dL (50-200); LDL, DIRECT 106.0 mg/dL (30-100); TRIGLYCERIDE 89.0 mg/dL (30-150)
[2024-12-20] MEDS ORDERED: Ativan 2 MG/1 ML VIAL IV ONE (17:00)
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
[2024-12-20] MEDS: ATIVAN 2 MG/ML MDV FOR SINGLE DOSES IV ONE (17:30)
[2024-12-20] MEDS: Acidophilus TABLET PO SCH (18:57)
[2024-12-20] MEDS: Protonix 20MG Tablet PO SCH (18:58)
[2024-12-20] MEDS: Advair Hfa 115/21 Common canister IH SCH (19:51)
[2024-12-20] MEDS: ROCEPHIN 1 GM / 100 ML NaCl 1 GM/100 ML IVPB IV SCH (22:29)
[2024-12-21] MEDS: Ativan 2 MG/1 ML VIAL IV ONE ×2 (01:13→23:17)
[2024-12-21 05:30] LABS: Hematocrit 44.2 % (40.1-51.0); Hemoglobin 13.9 g/dL (13.7-17.5); Mean Corpuscular Hemoglobin 29.5 pg (25.7-32.2); Mean Corpuscular Hgb Concent. 31.4 g/dL (32.3-36.5); Platelet Count 152 x10^3/uL (163-337); Red Blood Count 4.71 x10^6/uL (4.63-6.08); White Blood Count 10.0 x10^3/uL (4.23-9.07)
[2024-12-21 05:45] LABS: Calcium 8.6 mg/dL (8.4-10.2); Carbon Dioxide 28.0 mmol/L (22-30); Creatinine 1 0.78 mg/dL (0.66-1.25); EST GLOMERULAR FILTRATION RATE 89.0 ML/MIN; Glucose 118.0 mg/dL (74-106); Potassium 4.2 mmol/L (3.5-5.1); SGOT/AST 25.0 U/L (17-59); SGPT/ALT 16.0 U/L (0-50); Total Protein 6.3 g/dL (6.3-8.2)
[2024-12-21] MEDS ORDERED: BABY ASPIRIN 81 MG CHEW PO SCH ×2 (10:00)
[2024-12-21] MEDS: ECOTRIN 81 MG PO SCH (10:25)
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
--- NOTE | 2024-12-21 12:56 | XRAY ---
Indication: Cerebrovascular accident. Sagittal, coronal, and axial MRI brain performed without contrast using T1, T2, FLAIR, diffusion, and ADC sequences. Comparison: 1 day earlier. Again several images/sequences slightly degraded by motion. Grossly stable appearing acute ischemia right occipital lobe/right thalamus again without acute hemorrhage or mass effect. Remaining brain again demonstrates age-appropriate global atrophy and degenerative microischemia unchanged. No new focus of acute ischemia. 4th ventricle is midline without hydrocephalus. 7/8 cranial nerve complex bilaterally symmetric. Again normal flow void signal within the major intracerebral circulation. Normal appearing craniocervical junction and sella turcica. Stable moderate mucosal thickening left maxillary sinus Impression: Again motion artifact. Grossly stable MRI brain exam again demonstrating acute ischemia right occipital lobe/right thalamus, global atrophy, degenerative micro ischemia, and left maxillary sinus disease. No new intracranial abnormalities.
--- NOTE | 2024-12-21 18:18 | PCM.NOTE ---
Date and Time: 12/21/241813 Subjective Assessment: persistent left sided weakness. No new neurologic complaints Patient now reports a history of an abnormal heart rhythm requiring an ablation in the Objective Exam - Vital Signs Vital Signs: Vital Signs - 24 hr 12/20/24 12/20/24 12/20/24 19:00 20:26 20:37 Temperature 98.0 F Pulse Rate 92 H 90 Respiratory 21 18 Rate Blood Pressure 166/71 [right] O2 Sat by Pulse 98 94 L Oximetry 12/20/24 12/21/24 12/21/24 23:26 01:13 04:00 Temperature 98.0 F 98.0 F Pulse Rate 95 H 62 87 Respiratory 19 18 21 Rate Blood Pressure 148/67 147/73 [right] O2 Sat by Pulse 97 96 Oximetry 12/21/24 12/21/24 12/21/24 07:33 12:00 14:40 Temperature 98.7 F Pulse Rate 84 88 80 Respiratory 18 18 18 Rate Blood Pressure 194/93 [right] O2 Sat by Pulse 96 98 98 Oximetry 12/21/24 16:00 Temperature 98.8 F Pulse Rate 89 Respiratory 16 Rate Blood Pressure 142/72 [right] O2 Sat by Pulse 96 Oximetry - Physical Exam General: no acute distress Mental Status: alert, awake and oriented, fluent speech, cooperative Cranial nerves: extra ocular movements intact, sensation intact, face is symmetric Motor: weak motor strength LUE, weak motor strength LLE Sens:: intact to touch in all 4 (numbness in left hand) Movement:: no tremors noted, SHREE/FTN intact. No ataxia MSR:: unable to assess through telemedicine, no clonus noted. - NIHSS Stroke Scale Date Completed: 12/21/24 Time Stroke Scale Completed: 17:02 Objective Data - Labs Lab/Micro Results: Lab Results-Last 24 Hours 12/20/24 12/21/24 12/21/24 Range/Units 04:10 05:25 05:25 WBC 10.0 H (4.23-9.07) x10^3/uL RBC 4.71 (4.63-6.08) x10^6/uL Hgb 13.9 (13.7-17.5) g/dL Hct 44.2 (40.1-51.0) % MCV 93.8 H (79.0-92.2) fL MCH 29.5 (25.7-32.2) pg MCHC 31.4 L (32.3-36.5) g/dL RDW 13.8 (11.6-14.4) % Plt Count 152 L (163-337) x10^3/uL MPV 10.6 (9.4-12.4) fL Sodium 138 (135-145) mmol/L Potassium 4.2 (3.5-5.1) mmol/L Chloride 104 (98-107) mmol/L Carbon Dioxide 28 (22-30) mmol/L Anion Gap 9.5 (5-15) MEQ/L BUN 10 (9-20) mg/dL Creatinine 0.78 (0.66-1.25) mg/dL Estimated GFR 89.0 ML/MIN Glucose 118 H (74-106) mg/dL Hemoglobin A1c 5.99 (4.5-6.0) % Calcium 8.6 (8.4-10.2) mg/dL Total Bilirubin 2.00 H (0.2-1.3) mg/dL AST 25 (17-59) U/L ALT 16 (0-50) U/L Alkaline Phosphatase 66 (38-126) U/L Creatine Kinase (55-170) U/L Serum Total Protein 6.3 (6.3-8.2) g/dL Albumin 3.6 (3.5-5.0) g/dL 12/21/24 Range/Units 05:25 WBC (4.23-9.07) x10^3/uL RBC (4.63-6.08) x10^6/uL Hgb (13.7-17.5) g/dL Hct (40.1-51.0) % MCV (79.0-92.2) fL MCH (25.7-32.2) pg MCHC (32.3-36.5) g/dL RDW (11.6-14.4) % Plt Count (163-337) x10^3/uL MPV (9.4-12.4) fL Sodium (135-145) mmol/L Potassium (3.5-5.1) mmol/L Chloride (98-107) mmol/L Carbon Dioxide (22-30) mmol/L Anion Gap (5-15) MEQ/L BUN (9-20) mg/dL Creatinine (0.66-1.25) mg/dL Estimated GFR ML/MIN Glucose (74-106) mg/dL Hemoglobin A1c (4.5-6.0) % Calcium (8.4-10.2) mg/dL Total Bilirubin (0.2-1.3) mg/dL AST (17-59) U/L ALT (0-50) U/L Alkaline Phosphatase (38-126) U/L Creatine Kinase 110 (55-170) U/L Serum Total Protein (6.3-8.2) g/dL Albumin (3.5-5.0) g/dL - Other Procedures & Test Other Procedures & Test: MRI brain: shows acute ischemia in the right occipital lobe/right thalamus as well as global atrophy CTA: Minimal arteriosclerotic ICAs without critical stenosis/obstruction. Absent opacification/perfusion distal right posterior cerebral artery - Radiology Orders Radiology Orders: Radiology Procedures Category Date Time Status CAROTID BILATERAL [US] Stat Exams 12/20/24 13:10 Completed CHEST 1 VIEW (PORTABLE) Routine Exams 12/20/24 10:53 Completed CTA HEAD W AND/OR WO CONTRAST [CT] Stat Exams 12/20/24 13:07 Completed ECHO W/2D AND DOPPLER [US] Stat Exams 12/20/24 13:10 Taken HEAD WITHOUT CONTRAST [CT] Stat Exams 12/19/24 18:42 Completed MRI BRAIN W/O CONTRAST [MRI] Routine Exams 12/20/24 09:49 Completed MRI BRAIN W/O CONTRAST [MRI] Routine Exams 12/21/24 08:00 Completed Assessment & Plan - Encounter Encounter: "The entirety of this encounter was performed via Telemedicine using audio and visual " Patient is an 84 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 Progressive left sided weakness and left hand numbness is concerning for new infarct. Thrombolytics contraindicated due to outside of window and recent infarct. MRI brain: shows acute ischemia in the right occipital lobe/right thalamus as well as global atrophy CTA: Minimal arteriosclerotic ICAs without critical stenosis/obstruction. Absent opacification/perfusion distal right posterior cerebral artery Patient reports a history of an abnormal heart rhythm and an ablation in the . Patient may have underlying atrial fibrillation. If afib is discovered, patient should be switched to anticoagulation. - General Recommendations - Telemetry - q4h neuro checks - Medications - ASA 81mg daily - High intensity statin - Please avoid benzodiazepines/sedatives if agitated to not obscure neurologic exam - Imaging: - Awaiting TTE w/ bubble read - PT/OT/AIRPLANE INSPECTOR - Discharge Planning - Patient will need follow up with neurology - Please provide ambulatory telemetry at discharge (30 days)
[2024-12-21] MEDS: LIPITOR 40MG PO SCH (20:58)
[2024-12-21] MEDS: Ativan 2 MG/1 ML VIAL IV PRN (21:03)
--- NOTE | 2024-12-22 04:30 | TM.IN ---
Tele-Medicine Incident Note - Incident Note Tel-Medicine Incident Note: 12/22/24 0429 Overnight the patient has demonstrated intermittent agitation, requiring prn Ativan dose administration. Telemedicine Encounter - Telemedicine Encounter Telemedicine Encounter: "The entirety of this encounter was performed via Telemedicine" This visit was performed using real-time audio and video connection between my location and thepatients locationwith the assistance of a surrogateat the patients location. Written or verbal consent was obtained from the patient/guardian to perform this [facility]. Any patient questions regarding the telemedicine interaction were answered.
[2024-12-22 09:32] LABS: Hematocrit 43.7 % (40.1-51.0); Hemoglobin 14.2 g/dL (13.7-17.5); Mean Corpuscular Hemoglobin 30.3 pg (25.7-32.2); Mean Corpuscular Hgb Concent. 32.5 g/dL (32.3-36.5); Platelet Count 150 x10^3/uL (163-337); Red Blood Count 4.69 x10^6/uL (4.63-6.08); White Blood Count 7.8 x10^3/uL (4.23-9.07)
[2024-12-22 09:45] LABS: Calcium 8.5 mg/dL (8.4-10.2); Carbon Dioxide 28.0 mmol/L (22-30); Creatinine 1 0.69 mg/dL (0.66-1.25); EST GLOMERULAR FILTRATION RATE 92.4 ML/MIN; Glucose 124.0 mg/dL (74-106); Potassium 3.8 mmol/L (3.5-5.1); SGOT/AST 28.0 U/L (17-59); SGPT/ALT 19.0 U/L (0-50); Total Protein 6.5 g/dL (6.3-8.2)
[2024-12-22] MEDS: ECOTRIN 81 MG PO SCH (10:33)
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
[2024-12-22] MEDS: Seroquel 25 MG PO SCH (20:56)
[2024-12-22] MEDS: Haldol 5 MG IV PRN (22:19)
[2024-12-23 07:33] VITALS: BP 155/72; PULSE 83; RESP 18; TEMP 99.2; O2SAT 92
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
[2024-12-23] MEDS ORDERED: Risperdal 1 MG PO SCH (10:00)
[2024-12-23] MEDS ORDERED: Seroquel 100 MG PO SCH (22:00)
== END 2024-12-23 10:38 | DRG 65 ==
LOC: ED 17:44 → MED SURG 23:25 → OBSVTOIN 12-20 12:35
PROVIDERS: ADMIT Internal Medicine; ATTEND Internal Medicine
DX: I63.9 Cerebral infarction, unspecified (principal); J90 Pleural effusion, not elsewhere classified; H53.9 Unspecified visual disturbance; J32.9 Chronic sinusitis, unspecified; R55 Syncope and collapse; S09.90XA Unspecified injury of head, initial encounter; R29.6 Repeated falls; D72.829 Elevated white blood cell count, unspecified; W19.XXXA Unspecified fall, initial encounter; J60 Coalworker's pneumoconiosis; F41.9 Anxiety disorder, unspecified; R53.81 Other malaise; Z79.899 Other long term (current) drug therapy
CPT/HCPCS: 36415; 70450; 70496; 70551; 71045; 80048; 80053; 80061; 81001; 82550; 82947; 83036; 83721; 84443; 85025; 85027; 87637; 93005; 93306; 93880; 94640; 94760; 94762; 97161; 97165; 97530; 99285; G0378; Q3014